=== PATIENT | male | born 1965 | race Caucasian/White ===

== ENCOUNTER 2016-11-17 23:11 | Observation (INO) | payer OTHER ==
[2016-11-17] MEDS ORDERED: ALBUTEROL NEBULIZED 2.5 MG/3 ML INHALATION STA (23:21)
[2016-11-17] MEDS ORDERED: SODIUM CHLORIDE 0.9% 500 ML IV STA (23:21)
[2016-11-17] MEDS ORDERED: methylPREDNISolone SOD SUCCI 125 MG/2 ML VIAL IV STA (23:21)
[2016-11-17] MEDS ORDERED: IPRATROPIUM 0.5 MG/2.5 ML NEBU INHALATION STA (23:21)
[2016-11-17] MEDS ORDERED: ASPIRIN 81 MG CHEW PO STA (23:22)
[2016-11-17] MEDS ORDERED: NITROGLYCERIN OINT 1 INCH/GM PACKET TOPICAL STA (23:22)
--- NOTE | 2016-11-17 23:25 | ED ---
General Adult HPI - General Stated complaint: MELANIE Time Seen by Provider: 11/17/16 23:11 Source: RN notes reviewed - History of Present Illness Initial comments: This is a 51-year-old male presents emergency Department with a 30 year history of smoking. Patient shows up to the emergency department today stating he's been having some difficulty breathing over the last few days it got much worse today with some left-sided chest pain. Patient states he has been coughing quite a bit but no sputum production. Patient states the pain is on the left anterior chest as well as the left back. Patient denies any fever or chills. Patient denies any palpitations. Patient states he has episodes of coughing that seem to make it worse and when he eventually catches his breath if he starts coughing any shortness of breath is considerably worse. Patient states the chest pain is there whether he is coughing or not. He denies nausea vomiting diarrhea per patient denies headache patient denies numbness weakness. Patient denies lightheadedness dizziness or near syncopal episode. 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 - Related Data Home Medications Medication Instructions Recorded Confirmed Acetaminophen Tab [Tylenol Tab] 325 mg PO Q6H PRN 11/17/16 11/17/16 Ascorbic Acid [Vitamin C] 500 mg PO DAILY 11/17/16 11/17/16 Ibuprofen [Motrin] 400 mg PO Q6HR PRN 11/17/16 11/17/16 Multivitamins, Thera [Multivitamin 1 tab PO DAILY 11/17/16 11/17/16 (formulary)] Unknown Inhaler 2 puff INHALATION RT-DAILY PRN 11/17/16 11/17/16 Unknown Otc Cough Relief Caps 1 tab PO BID PRN 11/17/16 11/17/16 buPROPion [Wellbutrin] 75 mg PO DAILY 11/17/16 11/17/16 Allergies Allergy/AdvReac Type Severity Reaction Status Date / Time No Known Allergies Allergy Verified 11/17/16 23:40 Review of Systems ROS Statement: Those systems with pertinent positive or pertinent negative responses have been documented in the HPI. ROS Other: All systems not noted in ROS Statement are negative. General Exam - General Exam Comments Initial Comments: GENERAL: Patient is well-developed and well-nourished. Patient is nontoxic and well- hydrated and is in mild distress. ENT: Neck is soft and supple. No significant lymphadenopathy is noted. Oropharynx is clear. Moist mucous membranes. Neck has full range of motion without eliciting any pain. EYES: The sclera were anicteric and conjunctiva were pink and moist. Extraocular movements were intact and pupils were equal round and reactive to light. Eyelids were unremarkable. PULMONARY: Unlabored respirations. Good breath sounds bilaterally. Patient has a very wheezing bilaterally CARDIOVASCULAR: There is a regular rate and rhythm without any murmurs gallops or rubs. ABDOMEN: Soft and nontender with normal bowel sounds. No palpable organomegaly was noted. There is no palpable pulsatile mass. SKIN: Skin is clear with no lesions or rashes and otherwise unremarkable. NEUROLOGIC: Patient is alert and oriented x3. Cranial nerves II through XII are grossly intact. Motor and sensory are also intact. Normal speech, volume and content. Symmetrical smile. MUSCULOSKELETAL: Normal extremities with adequate strength and full range of motion. No lower extremity swelling or edema. No calf tenderness. LYMPHATICS: No significant lymphadenopathy is noted PSYCHIATRIC: Normal psychiatric evaluation. Normal interpersonal interactions appears functionally intact in deals appropriately with others. No signs of depression. No signs of anxiety. Course Vital Signs 11/17/16 11/17/16 11/17/16 23:19 23:37 23:49 Temperature 97.5 F L Pulse Rate 77 76 69 Respiratory 20 Rate Blood Pressure 129/73 O2 Sat by Pulse 93 L Oximetry 11/18/16 00:14 Temperature Pulse Rate 76 Respiratory 18 Rate Blood Pressure 126/78 O2 Sat by Pulse 96 Oximetry Medical Decision Making - Medical Decision Making EKG shows a normal sinus rhythm at 69 bpm HI interval 236 QRS is 94 QT interval 396 QTC is 424. Patient's EKG shows no ST segment elevation or depression or T- wave abdomen is noted. Chest x-ray shows no acute abnormality patient x-ray is consistent with COPD. Patient continues to complain of left-sided chest pain. I spoke with Dr. Fung and he agreed to accept the patient and admitted the patient I wrote admitting orders and I consult cardiology. - Lab Data Result diagrams: 11/17/16 23:18 11/17/16 23:18 Lab Results 11/17/16 11/17/16 11/17/16 Range/Units 23:18 23:18 23:18 WBC 6.0 (3.8-10.6) k/uL RBC 5.14 (4.30-5.90) m/uL Hgb 17.0 (13.0-17.5) gm/dL Hct 48.9 (39.0-53.0) % MCV 95.3 (80.0-100.0) fL MCH 33.0 (25.0-35.0) pg MCHC 34.6 (31.0-37.0) g/dL RDW 13.3 (11.5-15.5) % Plt Count 180 (150-450) k/uL Neutrophils % 55 % Lymphocytes % 28 % Monocytes % 5 % Eosinophils % 8 % Basophils % 1 % Neutrophils # 3.3 (1.3-7.7) k/uL Lymphocytes # 1.7 (1.0-4.8) k/uL Monocytes # 0.3 (0-1.0) k/uL Eosinophils # 0.5 (0-0.7) k/uL Basophils # 0.1 (0-0.2) k/uL PT (9.0-12.0) sec INR (<1.1) APTT (22.0-30.0) sec D-Dimer (<0.60) mg/L FEU Sodium 143 (137-145) mmol/L Potassium 4.2 (3.5-5.1) mmol/L Chloride 108 H (98-107) mmol/L Carbon Dioxide 23 (22-30) mmol/L Anion Gap 12 mmol/L BUN 12 (9-20) mg/dL Creatinine 0.90 (0.66-1.25) mg/dL Est GFR (MDRD) Af Amer >60 (>60 ml/min/1.73 sqM) Est GFR (MDRD) Non-Af >60 (>60 ml/min/1.73 sqM) Glucose 90 (74-99) mg/dL Calcium 9.3 (8.4-10.2) mg/dL Magnesium 2.2 (1.6-2.3) mg/dL Total Bilirubin 0.7 (0.2-1.3) mg/dL AST 26 (17-59) U/L ALT 28 (21-72) U/L Alkaline Phosphatase 54 (38-126) U/L Total Creatine Kinase 138 (55-170) U/L CK-MB (CK-2) 1.5 (0.0-2.4) ng/mL CK-MB (CK-2) Rel Index 1.1 Troponin I <0.012 (0.000-0.034) ng/mL Total Protein 6.8 (6.3-8.2) g/dL Albumin 4.6 (3.5-5.0) g/dL 11/17/16 Range/Units 23:18 WBC (3.8-10.6) k/uL RBC (4.30-5.90) m/uL Hgb (13.0-17.5) gm/dL Hct (39.0-53.0) % MCV (80.0-100.0) fL MCH (25.0-35.0) pg MCHC (31.0-37.0) g/dL RDW (11.5-15.5) % Plt Count (150-450) k/uL Neutrophils % % Lymphocytes % % Monocytes % % Eosinophils % % Basophils % % Neutrophils # (1.3-7.7) k/uL Lymphocytes # (1.0-4.8) k/uL Monocytes # (0-1.0) k/uL Eosinophils # (0-0.7) k/uL Basophils # (0-0.2) k/uL PT 11.0 (9.0-12.0) sec INR 1.1 (<1.1) APTT 25.1 (22.0-30.0) sec D-Dimer <0.17 (<0.60) mg/L FEU Sodium (137-145) mmol/L Potassium (3.5-5.1) mmol/L Chloride (98-107) mmol/L Carbon Dioxide (22-30) mmol/L Anion Gap mmol/L BUN (9-20) mg/dL Creatinine (0.66-1.25) mg/dL Est GFR (MDRD) Af Amer (>60 ml/min/1.73 sqM) Est GFR (MDRD) Non-Af (>60 ml/min/1.73 sqM) Glucose (74-99) mg/dL Calcium (8.4-10.2) mg/dL Magnesium (1.6-2.3) mg/dL Total Bilirubin (0.2-1.3) mg/dL AST (17-59) U/L ALT (21-72) U/L Alkaline Phosphatase (38-126) U/L Total Creatine Kinase (55-170) U/L CK-MB (CK-2) (0.0-2.4) ng/mL CK-MB (CK-2) Rel Index Troponin I (0.000-0.034) ng/mL Total Protein (6.3-8.2) g/dL Albumin (3.5-5.0) g/dL Disposition Clinical Impression: COPD exacerbation, Chest pain Disposition: ADMITTED IP TO THIS HOSP Referrals: Nonstaff,Physician [Primary Care Provider] - 1-2 days Time of Disposition: 00:43
[2016-11-17] MEDS ORDERED: ALBUTEROL NEB (CONC) 2.5 MG/0.5 ML INHALATION STA (23:34)
[2016-11-17 23:39] LABS: Basophils # (A) 0.1 k/uL (0-0.2); Basophils % (A) 1 %; CH 33.4; CHCM 35.3; Eosinophils # (A) 0.5 k/uL (0-0.7); Eosinophils % (A) 8 %; HCT 48.9 % (39.0-53.0); HDW 2.47; Luc # (Auto) 0.17; Luc % (Auto) 3; Lymphocytes # (A) 1.7 k/uL (1.0-4.8); Lymphocytes % (A) 28 %; MCHC 34.6 g/dL (31.0-37.0); MCV 95.3 fL (80.0-100.0); Mean Platelet Volume 7.5; Monocytes # (A) 0.3 k/uL (0-1.0); Monocytes % (A) 5 %; Neutrophils # (A) 3.3 k/uL (1.3-7.7); Neutrophils % (A) 55 %; RBC 5.14 m/uL (4.30-5.90); RDW 13.3 % (11.5-15.5); WBC (Perox) 6.09
[2016-11-17 23:49] LABS: ALT 28 U/L (21-72); AST 26 U/L (17-59); Alkaline Phosphatase 54 U/L (38-126); Anion Gap 12 mmol/L; Blood Urea Nitrogen 12 mg/dL (9-20); Calcium 9.3 mg/dL (8.4-10.2); Carbon Dioxide 23 mmol/L (22-30); Chloride 108 mmol/L (98-107); Glucose 90 mg/dL (74-99); Magnesium 2.2 mg/dL (1.6-2.3); Non-African American GFR(MDRD) >60 (>60 ml/min/1.73 sqM); Potassium 4.2 mmol/L (3.5-5.1); Sodium 143 mmol/L (137-145); Total Bilirubin 0.7 mg/dL (0.2-1.3); Total Protein 6.8 g/dL (6.3-8.2)
[2016-11-17 23:55] LABS: INR 1.1 (<1.1); Partial Thromboplastin Time 25.1 sec (22.0-30.0)
[2016-11-18 00:13] LABS: Creatine Kinase 138 U/L (55-170)
[2016-11-18 00:24] LABS: Creatine Kinase MB 1.5 ng/mL (0.0-2.4); Troponin I <0.012 ng/mL (0.000-0.034)
--- NOTE | 2016-11-18 00:38 | XR ---
EXAM: XR Chest, 2 Views CLINICAL HISTORY: Reason: difficulty breathing. History of asthma. TECHNIQUE: Frontal and lateral views of the chest. COMPARISON: None FINDINGS: Lungs/pleura: Hyperinflation of the lungs. No focal consolidation. No pleural effusion or pneumothorax. Heart/mediastinum: Normal. No cardiomegaly. Soft tissues: Unremarkable. Bones: No acute fracture. Upper abdomen: Normal. IMPRESSION: No acute disease.
[2016-11-18] MEDS: methylPREDNISolone SOD SUCCI 125 MG/2 ML VIAL IV SCH ×3 (05:43→15:52)
[2016-11-18] MEDS: NITROGLYCERIN OINT 1 INCH/GM PACKET TOPICAL SCH ×2 (05:48→12:36)
[2016-11-18 06:36] LABS: Glucose,Whole Blood 144 mg/dL (75-99)
[2016-11-18] MEDS ORDERED: ACETAMINOPHEN TAB 325 MG TAB PO PRN (06:37)
[2016-11-18] MEDS: IPRATROPIUM-ALBUTEROL 3 ML NEB INHALATION PRN ×3 (07:18→15:28)
[2016-11-18] MEDS: INSULIN LISPRO (humaLOG) 300 UNIT/3 ML VIAL SQ SCH ×2 (09:22→12:44)
--- NOTE | 2016-11-18 10:17 | CONS ---
DATE OF CONSULTATION: He has been experiencing coughing spells and this is a dry cough, but does not seem to go away. As a result of ( ) coughing, he also complains of chest discomfort and tightness and he thought he was having a heart attack and came in. His 12-lead ECG shows sinus rhythm with normal ST segments. Two serial cardiac enzymes so far are normal. He lives in [place] and has a medical doctor there. Dr. No. SOCIAL HISTORY: He is a 30-year history of smoking. MEDICATIONS: He just takes cough medications, Wellbutrin. No cardiac medications. ALLERGIES: No known drug allergies. REVIEW OF SYSTEMS: No fever, chills or rigors. He has a cough without expectoration. No nausea, vomiting or diarrhea. No hematuria or dysuria. No strokes or seizures. No skin lesions. No musculoskeletal complaints. PAST HISTORY: He denies diabetes, denies hypertension. On examination, he is afebrile at 97.5, pulse rate is in the 70s. Respirations are normal. Blood pressure is 139/73 mmHg. Head and neck examination is normal. No JVD, thyromegaly or carotid bruits. Heart sounds S1, S2 are normal. Lungs are clear on auscultation. Extremities are warm. No edema. His labs are reviewed. His cardiac enzymes x2 are normal. Electrolytes are normal. IMPRESSION: 1. Recurrent cough, which is dry. Not on any medication that could do this. He does not have any history of heart failure or any cardiac conditions. 2. Likely mild chronic obstructive pulmonary disease exacerbation. 3. Long-standing history of smoking. 4. No diabetes, no hypertension, not on any cardiac medications. SUGGEST: There is no evidence for acute myocardial infarction at this time. His ECG is normal. Cardiac enzymes x2 are normal. Will get a 2-D echo and Doppler. If this is normal, he should be treated for mild COPD exacerbation and he should see his primary physician in the next 2 weeks or so and once his lungs are clear a stress test should be done. Obviously, smoking cessation will be essential.
[2016-11-18 11:41] LABS: Hemoglobin A1C 5.4 % (4.2-6.1)
[2016-11-18 12:09] LABS: Glucose,Whole Blood 156 mg/dL (75-99)
[2016-11-18 12:31] VITALS: RESP 16
[2016-11-18] MEDS ORDERED: buPROPion 75 MG TAB PO SCH (13:45)
[2016-11-18] MEDS ORDERED: MULTIVITAMINS, THERA 1 EACH TAB PO SCH (14:00)
[2016-11-18 16:17] VITALS: BP 127/81; PULSE 83; TEMP 97.8
--- NOTE | 2016-11-18 21:02 | HP ---
DATE OF ADMISSION: 11/18/2016 REASON FOR ADMISSION: Chest pain. HISTORY OF PRESENT ILLNESS: This is a 51-year-old gentleman with no cardiac history. He comes in the hospital with complaints of chest pain located along the lower ribs, that is exacerbated with deep breathing and coughing. Patient states that he smokes about 15 to 20 cigarettes daily and has had progressive worsening of his pain exacerbated by deep breathing and coughing. Patient works as a truck driver instructor and states that he gets bored during and continues to a smoke regularly. Patient does have a remote diagnosis of COPD it appears from his medications. During my evaluation, patient states that his symptoms have been improved since infusion of IV steroids and breathing treatments. Patient was, however, admitted with concern for acute coronary syndrome. EKG did not reveal any ST-T wave elevations. Cardiac enzymes x3 have been negative. Patient does state to have a productive cough with greenish sputum at this time. No fevers, chills, diarrhea, nausea, vomiting, urinary urgency or frequency reported. 14 point review of systems done. None pertinent other than those as mentioned above. Home medications include: 1. [place]vesco. 2. Motrin. 3. Tylenol. 4. Wellbutrin. 5. Multivitamin. 6. Vitamin C. 7. Prednisone. 8. Albuterol. Those were reviewed and appropriately reconciled on admission and discharge. ALLERGIES: No known drug allergies. Past medical history includes depression. Remote diagnosis chronic obstructive pulmonary disease. PAST SURGICAL HISTORY: None. SOCIAL HISTORY: No premature heart disease is reported. PHYSICAL EXAMINATION: Temperature 97.8, heart rate 82, respiratory rate 16, blood pressure 127/81. Saturating 94% on room air. GENERALLY: Patient appears to be alert, oriented x3. HEENT: The pupils are equal and reactive to light and accommodation. HEART: S1, S2 present. No murmur appreciated. LUNGS: Air movement is slightly diminished. No rhonchi, wheezing or crackles appreciated. No reproducibility of chest pain. However, patient does state to have pain during deep breathing. ABDOMINAL EXAM: Soft, nontender, no organomegaly appreciated. GENITOURINARY: No Calderon in place. EXTREMITIES: Pulses can be palpated distally. Denies any tenderness on gross palpation. SKIN: On a gross skin exam does not appear to have any purpura or any skin rashes that were noted. NEUROLOGICALLY: Grossly cranial nerves 2-12 intact. No motor or sensory deficits noted. LUNGS: laboratory data include hemoglobin 17, hematocrit 48, platelets 180; white count is 6. Sodium 140, potassium 4.2, chloride 108, bicarb 23, BUN 12, creatinine 0.90. Cardiac enzymes x3 were less than 0.012. Chest x-ray was within normal limits. No acute process were noted. EKG was discussed above. ASSESSMENT AND PLAN: 1. Atypical chest pain, likely pleuritic in nature. 2. Ongoing tobacco use. PLAN: I did discuss treatment of pleuritic chest pain. Patient will undergo echocardiogram. Patient will follow-up with cardiology in a week's time to review the results of the echo. Patient's symptoms improved with prednisone. Discussed smoking cessation. Patient will be given 5 days of prednisone 50 mg. Patient will also be prescribed albuterol. Patient is to follow up with Dr. Saha within one week for review of results and thereafter possibility of undergoing a stress test at that time.
[2016-11-19] MEDS ORDERED: ASCORBIC ACID 500 MG TAB PO SCH (09:00)
--- NOTE | 2016-11-20 15:41 | ECHOF ---
Referral Reason:chest pain MEASUREMENTS -------- HEIGHT: 185.4 cm WEIGHT: 79.4 kg BP: 90/49 RVIDd: 2.1 cm (< 3.3) IVSd: 0.9 cm (0.6 - 1.1) LVIDd: 4.5 cm (3.9 - 5.3) LVPWd: 0.9 cm (0.6 - 1.1) IVSs: 1.5 cm LVIDs: 2.1 cm LVPWs: 1.4 cm LAESV Index (A-L): 8.86 ml/m Ao Diam: 3.3 cm (2.0 - 3.7) AV Cusp: 2.2 cm (1.5 - 2.6) LA Diam: 3.0 cm (2.7 - 3.8) MV EXCURSION: 16.312 mm (> 18.000) MV EF SLOPE: 115 mm/s (70 - 150) EPSS: 0.5 cm MV E Jamie: 0.62 m/s MV DecT: 334 ms MV A Jamie: 0.92 m/s MV E/A Ratio: 0.67 RAP: 5.00 mmHg RVSP: 27.00 mmHg FINDINGS -------- Sinus rhythm. This was a technically good study. Left ventricular wall thickness is normal. Overall left ventricular systolic function is normal with, an EF between 55 - 60 %. The right ventricle is normal in size and function. Normal LA size by volume 22+/-6 ml/m2. The right atrium is normal in size. The aortic valve is trileaflet, and appears structurally normal. No aortic stenosis or regurgitation. The mitral valve leaflets are mildly thickened. There is trace to mild mitral regurgitation. Trace tricuspid regurgitation present. There is no evidence of pulmonary hypertension. The right ventricular systolic pressure, as measured by Doppler, is 27.00mmHg. The pulmonic valve is normal. The aortic root size is normal. There is no pericardial effusion. CONCLUSIONS -------- 1. Sinus rhythm. 2. There is no pericardial effusion. 3. Overall left ventricular systolic function is normal with, an EF between 55 - 60 %. 4. Normal LA size by volume 22+/-6 ml/m2. 5. The mitral valve leaflets are mildly thickened. 6. There is trace to mild mitral regurgitation. 7. Trace tricuspid regurgitation present. 8. There is no evidence of pulmonary hypertension. 9. The right ventricular systolic pressure, as measured by Doppler, is 27.00mmHg. 10. The aortic root size is normal. PRESCHOOL DIRECTOR: Kirt Zheng RDCS
== END 2016-11-18 17:10 | disposition home or self-care (01) ==
LOC: SUPCPDRO 23:11 → EC 23:11 → 3OBS 11-18 00:43
PROVIDERS: ADMIT Internal Medicine; ATTEND Internal Medicine
DX: R07.89 Other chest pain (principal); R06.02 Shortness of breath; R05 Cough; F32.9 Major depressive disorder, single episode, unspecified; J44.9 Chronic obstructive pulmonary disease, unspecified; Z79.899 Other long term (current) drug therapy; F17.210 Nicotine dependence, cigarettes, uncomplicated
CPT/HCPCS: 99285; 96374 ×2; 96361 ×2; 96376; 36415; 94640 ×3; 94760; 93005; 93306; 85379; 80053; 83036; 82550; 82553; 83735; 84484 ×2; 85025; 85610; 85730; 71020; G0378; J2930 ×2